=== PATIENT | female | born 2000 | race Caucasian/White ===

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

== ENCOUNTER 2018-03-27 09:32 | Emergency (ER) | payer OTHER, BC ==
[~2018-03-27] VITALS: Ht 170.2 cm; Wt 71.2 kg
[~2018-03-27 09:32] MED LIST changes: +ONDA4TAB11 PO
--- OUTSIDE RECORDS SUMMARY | 2018-03-27 10:01 | XMS REPORT | Clinical Summary ---
Author Author [facility] Organization [facility] Address Unknown Phone Unavailable Care Team Providers Care Cylinder Grinder Name Role Phone Tiesha Bustillo APRN PCP Source Comments Some departments are not documenting in the electronic medical record. If you do not see the information that you expected, contact Release of Information in the Health Information Management department at [phone] for further assistance in locating additional records.[facility] Allergies Not on File Current Medications Not on file Active Problems Not on file Social History Tobacco Use Types Packs/Day Years Used Date Never Assessed Sex Assigned at Date Recorded Not on file Last Filed Vital Signs Not on file Plan of Treatment Health Maintenance Due Date Last Done Comments PHYSICAL (COMPREHENSIVE) 2005 EXAM HPV VACCINES (1 of 3 - 2009 Female 3-dose series) PERTUSSIS VACCINE 2009 HIV SCREENING 2013 TETANUS VACCINE 2015 INFLUENZA VACCINE 01/01/2018 Results Not on filefrom Last 3 Months
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
--- OUTSIDE RECORDS SUMMARY | 2018-03-27 10:01 | XMS REPORT | Continuity of Care Document ---
Author Author [facility] Organization [facility] Address Unknown Phone Unavailable Care Team Providers Care Superintendent Greens Name Role Phone PAULINO HELMS MD PP Insurance Providers Payer Name Policy Number Subscriber Name Relationship [facility] [id number] 01 Self / Same As Patient Advance Directives Directive Response Recorded Date Advance Directives N 01/12/13 10:36pm Organ Donor N 01/12/13 10:36pm Problems No Known Problems or Medical conditions. Social History History Response Recorded Date/Time Alcohol Use Denies Use 01/12/13 10:36pm Recreational Drug Use N 01/12/13 10:36pm Sexually Transmitted Disease N 01/12/13 10:36pm HIV/AIDS N 01/12/13 10:36pm Allergies, Adverse Reactions, Alerts Allergen Type Severity Reaction Last Updated No Known Drug Allergies 02/06/11 Medications Medication Dose Units Route Sig Qty Days Lisdexamfetamine Dimesylate (Vyvanse) 30 Mg PO DAILY Response Recorded Date/Time Status not known Unknown Results No Known Relevant Diagnostic Tests, Laboratory Data and/or Discharge Summary. Encounters Encounter Location Date/Time Departed Emergency Room [facility] [place] [facility] 05/15 10:30pm
[2018-03-27] MEDS ORDERED: LISD30CA3 PO (10:22)
[2018-03-27] MEDS ORDERED: DULO60CA6 PO (10:22)
[2018-03-27 10:58] LABS: HEMOGLOBIN 15.4 G/DL (11.5-16.0); MEAN PLATELET VOLUME 9.7 FL (7.4-10.4); RED BLOOD COUNT 5.07 10^6/uL (4.35-5.85); RED CELL DISTRIBUTION WIDTH 12.4 % (10.0-14.5); WHITE BLOOD COUNT 8.3 10^3/uL (4.3-11.0)
[2018-03-27 11:16] LABS: ALANINE AMINOTRANSFERASE 8 U/L (0-55); ALBUMIN 4.6 GM/DL (3.2-4.5); ALKALINE PHOSPHATASE 68 U/L (40-136); BILIRUBIN,DIRECT 0.3 MG/DL (0.0-0.3); BILIRUBIN,INDIRECT 0.5 MG/DL; BILIRUBIN,TOTAL 0.8 MG/DL (0.1-1.0); BUN/CREATININE RATIO 16; CALCIUM 9.7 MG/DL (8.5-10.1); CARBON DIOXIDE 25 MMOL/L (21-32); CHLORIDE 102 MMOL/L (98-107); CREATININE SERUM 0.77 MG/DL (0.60-1.30); GFR ESTIMATED > 60; GLUCOSE 85 MG/DL (70-105); SODIUM 137 MMOL/L (135-145); TOTAL PROTEIN 7.9 GM/DL (6.4-8.2)
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
[2018-03-27 12:52] LABS: BILIRUBIN,URINE NEGATIVE (NEGATIVE); CLARITY,URINE SLIGHTLY CLOUDY; COLOR,URINE YELLOW; GLUCOSE, URINE (UA) NEGATIVE (NEGATIVE); KETONES,URINE NEGATIVE (NEGATIVE); LEUKOCYTE ESTERASE ,URINE NEGATIVE (NEGATIVE); NITRITE,URINE NEGATIVE (NEGATIVE); PH,URINE 6.5 (5-9); PROTEIN,URINE NEGATIVE (NEGATIVE); UROBILINOGEN,URINE NORMAL (NORMAL)
[2018-03-27] MEDS ORDERED: KETOROLAC 30 MG/ML VIAL IM ONE (13:00)
[2018-03-27 13:02] LABS: BACTERIA,URINE TRACE /HPF; RBC,URINE RARE /HPF
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
[2018-03-27 14:16] VITALS: BP 132/80
== END 2018-03-27 14:16 | disposition home or self-care (01) ==
LOC: EDUNIT# 09:32 → ER 09:33
DX: R51 Headache (principal); M54.2 Cervicalgia; M25.552 Pain in left hip; M25.551 Pain in right hip; Z98.890 Other specified postprocedural states; Z90.89 Acquired absence of other organs; Z87.448 Personal history of other diseases of urinary system; V49.40XA Driver injured in collision with unspecified motor vehicles in traffic accident, initial encounter
CPT/HCPCS: 36415; 70450; 71045; 72125; 73523; 80048; 80076; 80320; 81000; 84703; 85027; 96372

== ENCOUNTER → 2023-03-14 | Outpatient (CLI) | payer MEDICAID, MEDICARE ==
[~2023-03-14] MED LIST changes: +ACHYD1T PO; +DULO60CA7 PO; -HYDR-3820 PO; +LISD30CA3 PO
--- NOTE | 2023-03-14 14:54 | Diagnostic Imaging Report ---
INDICATION: Anatomical survey. TECHNIQUE: Multiple real-time grayscale images were obtained over the gravid uterus. COMPARISON: None. FINDINGS: There is a single living intrauterine in a variable presentation. The biometry correlates with a gestational age of 19 weeks 4 days. Amniotic fluid index is 10.6. Placenta is posterior. There appears to be previa. Heart rate is 155 BPM and regular. Anatomical survey is unremarkable. This includes a three-vessel cord and four-chamber heart. Cervical length is 5.1 cm. There are findings concerning for cleft upper lip and palate. Biometrical measurements are as follows: Biparietal 4.53 cm, age 19 weeks 5 days. Head circumference 16.85 cm, age 19 weeks 4 days. Abdominal circumference 13.78 cm, age 19 weeks 2 days. Femur length 2.97 cm, age 19 weeks 2 days. Sonographic estimate age: 19 weeks 4 days. Sonographic estimated date of delivery: 08/04/2023. Estimated Weight: 281 gm (+/- 41 gm). LMP percentile: 12%. heart rate: 155 beats per minute. number: 1 of 1. IMPRESSION: Single living intrauterine with a sonographically estimated gestational age of 19 weeks 4 days and estimated date confinement of 08/04/2023. Findings suspect for cleft upper lip and palate. Additionally, there is placenta previa. 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 Dictated by: Dictated on workstation # [id number]
== END ==
LOC: RAD 08:52
PROVIDERS: ATTEND Nurse Practitioner Women's Health
DX: Z34.82 Encounter for supervision of other normal pregnancy, second trimester (principal); Z3A.19 19 weeks gestation of pregnancy
CPT/HCPCS: 76805